=== PATIENT | male | born 1945 | race Caucasian/White ===

== ENCOUNTER 2021-04-03 06:40 | Day surgery (SDC) | payer MEDICARE ==
[~2021-04-03] VITALS: Ht 177.8 cm; Wt 82.5 kg
[~2021-04-03 06:40] MED LIST: CIPRO 500MG TA500 MG PO
[2021-04-03] MEDS ORDERED: ZESTRIL 10MG10 MG PO (07:40)
[2021-04-03] MEDS ORDERED: ONE-A-DAY ESSE1 EACH PO (07:41)
[2021-04-03] MEDS ORDERED: B-12 500 MCG PO (07:42)
[2021-04-03] MEDS ORDERED: VITAMIND3 5000 PO (07:42)
[2021-04-03] MEDS ORDERED: VITAMIN C500 MG PO (07:43)
[2021-04-03] MEDS ORDERED: PHARMASSURE ZIN50 MG PO (07:43)
[2021-04-03 07:52] VITALS: BP 134/76; PULSE 69; TEMP 98.5
[2021-04-03 08:01] LABS: ALBUMIN 4.3 gm/dL (3.5-5.0); BILIRUBIN,TOTAL 1.3 mg/dL (0.0-1.0); CALCIUM 9.9 mg/dL (8.4-10.2); CREATININE, serum 0.92 (0.66-1.25); POTASSIUM 4.3 mmol/L (3.4-5.0); TOTAL PROTEIN 7.1 gm/dL (6.4-8.2)
[2021-04-03] MEDS ORDERED: ULTRAM 50MG TAB50 MG PO (09:29)
[2021-04-03 10:05] VITALS: BP 139/71; PULSE 68; TEMP 97.6
[2021-04-03 10:20] VITALS: BP 146/72; PULSE 35
[2021-04-03 10:50] VITALS: BP 147/71; PULSE 67
[2021-04-03 11:05] VITALS: BP 136/78; PULSE 69
--- NOTE | 2021-04-03 11:20 | NUR ---
PATIENT WENT TO RESTROOM AND VOIDED.
--- NOTE | 2021-04-03 11:54 | NUR ---
1005: PATIENT ARRIVED TO RECOVERY IN ROOM 8. PATIENT EYES CLOSED, ANSWERS TO NAME. MINIMAL COMPLAINT OF PAIN. 1020: PATIENT WENT TO RESTROOM. STATED HE WILL TURN HIS ARTIFICIAL SPHINCTER WHEN HE ARRIVES BACK HOME EDUCATED BY DR. AYALA ON HOW TO RESTART. 1050: PATIENT ALERT AND AWAKE. ICE CREAM, TOAST AND SPRITE GIVEN TOLERATED WELL. NO COMPLAINT OF NAUSA OR VOMITING. 1135: EDUCATED PATIENT ON DISCHARGE INSTRUCTIONS, FOLLOW UP APPOINTMENTS, AND REMOVED IV. PATIENT AND VERBALIZED UNDERSTANDING TO INSTRUCTURES, QUESTIONS ANSWERED, DIRECTED TO CALL OFFICIE IF QUESTIONS ARISE. 1145: PATIENT DISCHARGED VIA WHEELCHAIR. TO PULL CAR UP TO ENTRANCE.
--- NOTE | 2021-04-03 12:04 | NUR ---
0730: DR. AYALA AT BEDSIDE TO TURN OFF ARTIFICIAL URINARY SPHINCTER. EDUCATED PATIENT ON HOW TO TURN SPHINCTER ON ONCE HE GETS HOME.
== END 2021-04-03 11:48 ==
LOC: SDCO 06:40
PROVIDERS: Surgery
DX: K80.10 Calculus of gallbladder with chronic cholecystitis without obstruction (principal); I10 Essential (primary) hypertension; Z86.16 Personal history of COVID-19; Z85.51 Personal history of malignant neoplasm of bladder; Z93.6 Other artificial openings of urinary tract status; Z79.899 Other long term (current) drug therapy; Z87.19 Personal history of other diseases of the digestive system
CPT/HCPCS: J0690; J1100; J2405; J2704; J3010; J7120